=== PATIENT | male | born 1985 | race Caucasian/White ===

== ENCOUNTER 2018-12-09 12:15 | Emergency (ER) | payer BC, OTHER ==
[2018-12-09 12:28] VITALS: BP 145/79
--- NOTE | 2018-12-09 12:53 | UC ---
Skin Complaint HPI - HPI Summary HPI Summary: 33 y/o male presents to the urgent care c/o a rash in B/L feet w/ a lot itchiness since last Tuesday12/06/2018. Pt reports that day he was wearing sandals and was [place]. He noticed some blisters. However yesterday he noticed similar rash in his abdomen and chest. The first day he used some Epson salt, but itchiness worsen. Then, he applied hydrocortisone topical cream, w/ mild relief. Pt also did an oatmeal bath yesterday which helped. Pt denies eating something different, recent travel, change is body lotions or detergents, fever, SOB, chest pain, abdominal pain, N/V/d or recent change in medication. No Hx of STD's - History of Current Complaint Chief Complaint: UCRash Time Seen by Provider: 12/09/18 12:44 Stated Complaint: RASH Hx Obtained From: Patient Onset/Duration: Gradual Onset, Lasting Days - 4 days, Still Present, Worse Since - yesterday Skin Exposure Onset/Duration: Days Ago - 4 days Timing: Constant Onset Severity: Mild Current Severity: Moderate Pain Intensity: 5 - irritation Pain Scale Used: 0-10 Numeric Location: Discrete - B/L dorsal side of feet, discrete in the abdomen and chest Character: Pruritus, Redness Aggravating Factor(s): Touch Alleviating Factor(s): OTC Creams/Salves Associated Signs & Symptoms: Positive: Rash - B/L feet, abdomen and chest w/ a lot itchiness, Tenderness - irritation. Negative: Nausea, Vomiting, Difficulty Breathing, Fever, Chills, Cough, Wheezing, Hoarseness, Throat Tightening, Drainage Related History: Possible Reaction to: Environmental Exposure - Allergy/Home Medications Allergies/Adverse Reactions: Allergies Allergy/AdvReac Type Severity Reaction Status Date / Time aspirin Allergy Swelling Verified 12/09/18 12:24 Of Face,Lips,& Throat ibuprofen Allergy Swelling Verified 12/09/18 12:24 Of Face,Lips,& Throat PMH/Surg Hx/FS Hx/Imm Hx Previously Healthy: Yes - Pt denies PMHX - Surgical History Surgical History: Yes Surgery Procedure, Year, and Place: sports hernia injury - Family History Known Family History: Positive: Diabetes - Social History Occupation: Employed Full-time Lives: With Family Alcohol Use: Rare Substance Use Type: None Smoking Status (MU): Never Smoked Tobacco Review of Systems All Other Systems Reviewed And Are Negative: Yes Constitutional: Positive: Negative Skin: Positive: Rash - B/l feet and abdomen and chest itchy rash Eyes: Positive: Negative ENT: Positive: Negative Respiratory: Positive: Negative Cardiovascular: Positive: Negative Gastrointestinal: Positive: Negative Genitourinary: Positive: Negative Motor: Positive: Negative Neurovascular: Positive: Negative Musculoskeletal: Positive: Negative Neurological: Positive: Negative Psychological: Positive: Negative Is Patient Immunocompromised?: No Physical Exam - Summary Physical Exam Summary: Vital Signs Reviewed: Yes General: well appearing, well nourished male in no acute apparent pain distress , sitting comfortably on examining table Eye Exam: Normal Eyes: Positive: Conjunctiva Clear - PERRLA< EOMI, fundi grossly normal ENT: Positive: Normal ENT inspection, Hearing grossly normal, Pharynx normal, TMs normal Neck: Positive: Supple, Nontender, No Lymphadenopathy Respiratory: Positive: Chest non-tender, Lungs clear, Normal breath sounds, No respiratory distress Cardiovascular: Positive: RRR, No Murmur, Pulses Normal, Brisk Capillary Refill Abdomen Description: Positive: Nontender, No Organomegaly, Soft. Negative: CVA Tenderness (R), CVA Tenderness (L) Bowel Sounds: Positive: Present Musculoskeletal: Positive: Strength Intact, ROM Intact, No Edema Neurological: Positive: Alert, Muscle Tone Normal Psychological Exam: Normal Skin: Positive: b/L dorsal side of feet w/ scattered erythematous papules, discrete vesicles, particularly in linear streaks w/ mild signs of excoriation , no drainage observed, non tender to palpation. Similar eruption, but very mild on abdomen and chest. Triage Information Reviewed: Yes Vital Signs: Initial Vital Signs Temp 98.9 F 12/09/18 12:21 Pulse 83 12/09/18 12:21 Resp 18 12/09/18 12:21 BP 145/79 12/09/18 12:21 Pulse Ox 100 12/09/18 12:21 Course/Dx - Course Course Of Treatment: 33 y/o male presents to the urgent care c/o a rash in B/L feet w/ a lot itchiness since last Tuesday12/06/2018. Pt reports that day he was wearing sandals and was [place]. He noticed some blisters. However yesterday he noticed similar rash in his abdomen and chest. The first day he used some Epson salt, but itchiness worsen. Then, he applied hydrocortisone topical cream, w/ mild relief. Pt also did an oatmeal bath yesterday which helped. Pt denies eating something different, recent travel, change is body lotions or detergents, fever, SOB, chest pain, abdominal pain, N/V/d or recent change in medication. No Hx of STD's. Hx obtained. Pt's rash is unspecified , probably contact dermatitis vs poison deena. PT Rx Triamcinolone topical cream and Benadryl PO for pruritus. Pt advised if not improvement or worsening of symptoms to return to the clinic or f/u with PCP or Accounts Collector DR Villafana for further treatment. Pt's BP is elevated today advised to decrease salt in diet, monitor BP and f/u with PCP for further management. D/C instructions explained. PT understood and agreed with D/C instructions. - Differential Diagnoses - Skin Complaint Differential Diagnoses: Abscess, Cellulitis, Contact Dermatitis, Local Allergic Reaction, Poison [place], Poison [place], Tinea - Diagnoses Provider Diagnosis: Rash and nonspecific skin eruption, Elevated BP without diagnosis of hypertension Discharge - Sign-Out/Discharge Documenting (check all that apply): Patient Departure - d/C home All imaging exams completed and their final reports reviewed: No Studies - Discharge Plan Condition: Stable Disposition: HOME Prescriptions: diPHENhydraMINE PO* [Benadryl PO 25 MG TAB*] 25 mg PO Q6H PRN #30 tab PRN Reason: pruritus Triamcinolone 0.1% CREAM (NF) [Kenalog 0.1% Cream (NF)] 1 applic TOPICAL BID #1 applic Patient Education Materials: Acute Rash (ED) Referrals: Jorge Mckeon MD [Primary Care Provider] - 3 Days Dea Villafana [Medical Doctor] - If Needed Additional Instructions: 1-Please apply triamcinolone topical cream around affected areas as directed. Continue w/ oat meal baths. 2-Take Benadryl PO q6hrs prns to alleviate itchiness. If medication is causing too much drowsiness please do not drive. 3-If symptoms do not improve or worsen please f/u with your PCP or Accounts Collector DR Villafana in 3 days for further evaluation and treatment. 4- Your BP is elevated today. please decrease salt in your diet, monitor BP and if it continues to be elevated please f/u with your PCP for further management. - Billing Disposition and Condition Condition: STABLE Disposition: Home
== END 2018-12-09 13:20 | disposition home or self-care (01) ==
LOC: UCEAST 12:15
DX: R21 Rash and other nonspecific skin eruption (principal); R03.0 Elevated blood-pressure reading, without diagnosis of hypertension; Z88.8 Allergy status to other drugs, medicaments and biological substances
CPT/HCPCS: 99212; G0463